=== PATIENT | female | born 1975 | race Caucasian/White ===

== ENCOUNTER 2020-12-29 08:08 | Emergency (ER) | payer OTHER ==
[~2020-12-29 08:08] MED LIST: BIOTIN5000 MCG PO; COLESTIPOL HCL1 GM PO; FOLIC ACID1 MG PO; GLIPIZIDE ER2.5 MG PO; IRON18 MG PO; LASIX40 MG PO; LISINOPRIL-HCT1 EAC2 PO; MAG-OXIDE 400M400 MG PO; METFORMIN HCL1000 MG PO; OMEPRAZOLE 20MG20 MG PO; OXYBUTYNIN CHLOR5 MG PO; POTASSIUM CHLO10 ME1 PO; PROTONIX 40MG T40 MG PO; ROSUVASTATIN CA20 MG PO; TAMOXIFEN CITRA20 MG PO; VITAMIN B-12 IJ; VITAMIN D35000 UNI1 PO; ZOFRAN4 MG PO; ZOFRAN8 MG PO
[2020-12-29 09:25] LABS: BASOPHIL 0.4 % (0-2); EOSINOPHIL 0.3 % (0-5); HCT 36.8 % (37.0-47.0); HGB 14.8 g/dl (12.5-16.0); LYMPHOCYTE 5.9 % (15-48); MCH 36.5 pg (25.0-31.0); MCHC 40.2 g/dL (32.0-36.0); MCV 90.6 fL (78.0-100.0); MONOCYTE 4.6 % (0-12); MPV 11.4 fL (6.0-9.5); NEUTROPHIL 88.1 % (41-80); NRBC 0; PLT 247 K/uL (150-400); RBC 4.06 M/uL (4.20-5.40); RDW 14.2 % (11.5-14.0); WBC 15.5 K/uL (4.0-10.5)
[2020-12-29 09:30] LABS: BILIRUBIN 1+ mg/dL (NEGATIVE); BLOOD 3+ Ery/uL (NEGATIVE); COLOR YELLOW (YELLOW); GLUCOSE (U) 3+ mg/dL (NORMAL); LEUKOCYTES NEGATIVE Leu/uL (NEGATIVE); NITRITE NEGATIVE (NEGATIVE); PROTEIN NEGATIVE (NEGATIVE); SPECIFIC GRAVITY 1.015 (1.001-1.030); UROBILINOGEN 0.2 mg/dL (0.2-1.0); pH 6.5 (5.0-9.0)
[2020-12-29 09:32] LABS: CLARITY SLIGHTLY HAZY (CLEAR)
[2020-12-29 09:36] LABS: URINARY WBC RARE
[2020-12-29 09:37] LABS: BACTERIA TRACE; URINARY RBC 20-50
[2020-12-29 09:50] LABS: GLUCOSE 469 mg/dL (74-106)
[2020-12-30 08:16] LABS: BUN 16 mg/dL (7-18)
[2020-12-30 08:17] LABS: CREATININE 0.95 mg/dL (0.51-0.95)
[2020-12-30 08:26] LABS: CHLORIDE 92 mmol/L (98-107)
[2020-12-30 08:27] LABS: CO2 (BICARBONATE) 14 mmol/L (21-32)
[2020-12-30 08:28] LABS: TOTAL PROTEIN 6.6 g/dL (6.4-8.2)
[2020-12-30 08:29] LABS: ALBUMIN 3.6 g/dL (3.4-5.0); BILIRUBIN - TOTAL 0.4 mg/dL (0.2-1.0)
[2020-12-30 08:30] LABS: ALKALINE PHOSHATASE 129 U/L (46-116)
[2020-12-30 08:32] LABS: LIPASE 85 U/L (73-393)
[2020-12-30 08:35] LABS: POTASSIUM 4.4 mmol/L (3.5-5.1)
== END 2020-12-29 15:35 | disposition other institution (70) ==
LOC: FER 08:08
PROVIDERS: Emergency Medicine
DX: K85.90 Acute pancreatitis without necrosis or infection, unspecified (principal); E11.9 Type 2 diabetes mellitus without complications; I10 Essential (primary) hypertension; Z91.040 Latex allergy status
CPT/HCPCS: 36415; 80053; 81001; 83690; 85025; 87040; J1170; J2270; J2405; J7030; J7040; Q9967

== ENCOUNTER 2021-07-15 14:55 | Emergency (ER) | payer OTHER ==
[2021-07-15 15:37] LABS: BASOPHIL 0.9 % (0-2); EOSINOPHIL 3.5 % (0-5); HCT 39.9 % (37.0-47.0); HGB 13.3 g/dl (12.5-16.0); LYMPHOCYTE 15.4 % (15-48); MCH 30.4 pg (25.0-31.0); MCHC 33.3 g/dL (32.0-36.0); MCV 91.1 fL (78.0-100.0); MPV 11.3 fL (6.0-9.5); NEUTROPHIL 72.1 % (41-80); NRBC 0; PLT 286 K/uL (150-400); RBC 4.38 M/uL (4.20-5.40); WBC 9.3 K/uL (4.0-10.5)
[2021-07-15 15:42] LABS: INR 0.96 (0.9-1.2); PROTHROMBIN TIME 12.2 SECONDS (11.8-13.4)
[2021-07-15 16:06] LABS: ALBUMIN 3.5 g/dL (3.4-5.0); ALKALINE PHOSHATASE 171 U/L (46-116); BILIRUBIN - TOTAL 0.4 mg/dL (0.2-1.0); BUN 23 mg/dL (7-18); BUN/CREAT RATIO (CALC) 27.1 RATIO; CHLORIDE 96 mmol/L (98-107); CO2 (BICARBONATE) 22 mmol/L (21-32); CREATININE 0.85 mg/dL (0.51-0.95); GLOBULIN (CALCULATION) 3.8 g/dL; GLUCOSE 351 mg/dL (74-106); POTASSIUM 3.8 mmol/L (3.5-5.1); TOTAL PROTEIN 7.3 g/dL (6.4-8.2)
[2021-07-15 16:09] LABS: LACTIC ACID 1.7 mmol/L (0.4-1.9)
[2021-07-15 16:42] LABS: BILIRUBIN NEGATIVE (NEGATIVE); BLOOD NEGATIVE Ery/uL (NEGATIVE); CLARITY CLEAR (CLEAR); COLOR YELLOW (YELLOW); GLUCOSE (U) 3+ mg/dL (NORMAL); LEUKOCYTES NEGATIVE Leu/uL (NEGATIVE); NITRITE NEGATIVE (NEGATIVE); PROTEIN NEGATIVE (NEGATIVE); UROBILINOGEN 0.2 mg/dL (0.2-1.0)
[2021-07-15 16:48] LABS: AMPHETAMINES NEGATIVE (NEGATIVE); BARBITURATES NEGATIVE (NEGATIVE); ECSTASY (MDMA) NEGATIVE (NEGATIVE); MARIJUANA (THC) NEGATIVE (NEGATIVE); METHADONE NEGATIVE (NEGATIVE); OPIATES NEGATIVE (NEGATIVE); OXYCODONE NEGATIVE (NEGATIVE)
== END 2021-07-15 19:30 | disposition other institution (70) ==
LOC: FER 14:55
PROVIDERS: Internal Medicine
DX: G45.9 Transient cerebral ischemic attack, unspecified (principal); E11.10 Type 2 diabetes mellitus with ketoacidosis without coma; R29.702 NIHSS score 2; I10 Essential (primary) hypertension; Z91.040 Latex allergy status; Z88.8 Allergy status to other drugs, medicaments and biological substances
CPT/HCPCS: 36415; 70450; 71045; 80053; 80305; 81003; 82009; 82140; 83605; 84145; 85025; 85610; 85730; J7030

== ENCOUNTER 2022-02-27 18:36 | Emergency (ER) | payer OTHER ==
[2022-02-27 20:32] LABS: BASOPHIL 0.8 % (0-2); EOSINOPHIL 2.6 % (0-5); HCT 39.7 % (37.0-47.0); HGB 13.3 g/dl (12.5-16.0); LYMPHOCYTE 17.8 % (15-48); MCH 29.9 pg (25.0-31.0); MCHC 33.5 g/dL (32.0-36.0); MCV 89.2 fL (78.0-100.0); MONOCYTE 6.4 % (0-12); MPV 10.7 fL (6.0-9.5); NEUTROPHIL 71.8 % (41-80); NRBC 0; PLT 349 K/uL (150-400); RBC 4.45 M/uL (4.20-5.40); RDW 14.9 % (11.5-14.0); WBC 10.9 K/uL (4.0-10.5)
[2022-02-27 20:37] LABS: INR 0.99 (0.9-1.2); PROTHROMBIN TIME 12.5 SECONDS (11.8-13.4); PTT 25.6 SECONDS (24.4-34.7)
[2022-02-27 20:47] LABS: ALBUMIN 3.7 g/dL (3.4-5.0); BILIRUBIN - TOTAL 0.3 mg/dL (0.2-1.0); CREATININE 1.08 mg/dL (0.51-0.95); POTASSIUM 4.2 mmol/L (3.5-5.1); TOTAL PROTEIN 7.7 g/dL (6.4-8.2)
[2022-02-27] MEDS ORDERED: NORCO 5-325 TA1 EACH PO (21:49)
[2022-02-27 22:11] LABS: CORONAVIRUS 2019 SARS-COV-2 NEGATIVE (NEGATIVE); INFLUENZA A NAA NEGATIVE (NEGATIVE)
== END 2022-02-27 22:08 | disposition home or self-care (01) ==
LOC: FER 18:36
PROVIDERS: Emergency Medicine; Internal Medicine
DX: R07.89 Other chest pain (principal); E11.9 Type 2 diabetes mellitus without complications; I10 Essential (primary) hypertension; Z20.822 Contact with and (suspected) exposure to COVID-19; Z91.040 Latex allergy status; W19.XXXA Unspecified fall, initial encounter
CPT/HCPCS: 36415; 71045; 71250; 80053; 84145; 84484; 85025; 85610; 85730; 93005; U0002